=== PATIENT | female | born 1970 | race Caucasian/White ===

== ENCOUNTER 2025-05-12 01:50 | Emergency (ER) | payer OTHER, SELFPAY ==
[2025-05-12 02:04] VITALS: BP 172/97; PULSE 98; RESP 20; TEMP 36.7; O2SAT 100; BMI 37.8
--- NOTE | 2025-05-12 02:17 | ED.FEMALEGU ---
HPI - Female Genitourinary General Chief complaint: Urogenital-Female Stated complaint: Poss Kidney stone, N/V, weakness Time Seen by Provider: 05/12/25 02:15 Source: patient Mode of arrival: Ambulatory History of Present Illness HPI Narrative: 55-year-old female patient with a history of nephrolithiasis and obesity who complains of left-sided flank and abdominal pain worsening over 2 hours similar to previous kidney stones. No vomiting, diarrhea or fever. Related Data Previous Rx's ?Medication ?Instructions ?Recorded hydrocodone 7.5 mg-acetaminophen 1 tab PO Q6H PRN pain #7 tabs 05/12/25 325 mg tablet tamsulosin 0.4 mg capsule (Flomax) 0.4 mg PO DAILY 4 days #4 caps 05/12/25 Allergies Allergy/AdvReac Type Severity Reaction Status Date / Time Penicillins Allergy Rash Verified 05/12/25 02:05 Sulfa (Sulfonamide Allergy Rash Verified 05/12/25 02:05 Antibiotics) Review of Systems Review of Systems ROS Unobtainable: All systems reviewed & are unremarkable except as noted in HPI and below Gastrointestinal Gastrointestinal: Reports as per HPI Genitourinary Genitourinary: Reports as per HPI Exam Narrative Exam Narrative: General: Alert and conversant. Moderate distress. Obese. Appears well nourished and well hydrated Craniofacial: No evidence of trauma. Nontender and no swelling. Eyes: PERRLA EOMI conjunctiva clear Lungs: Clear to auscultation with good air movement. No wheezing, rales or rhonchi. No respiratory distress Cardiac: Regular rate and rhythm with no appreciable murmur or gallop Abdomen: Soft, mild left lower quadrant tenderness. No rebound or guarding. With no distention or masses. Normal bowel sounds. Musculoskeletal: Exam of the extremities, axial spine and ribcage reveals no deformity, bony tenderness or swelling. Range of motion intact Neuro: Alert and oriented. Cranial nerves, motor, sensory and cerebellar all grossly intact. No focal deficit Skin: Warm and normal color. No rashes Psychological: Normal affect and interaction. No evidence of delusion or psychosis. Normal mood. Initial Vital Signs Initial Vital Signs: Vital Signs Temperature 98.0 F 05/12/25 02:04 Pulse Rate 98 H 05/12/25 02:04 Respiratory Rate 20 05/12/25 02:04 Blood Pressure 172/97 H 05/12/25 02:04 Pulse Oximetry 100 05/12/25 02:04 Oxygen Delivery Method Room Air 05/12/25 02:04 Course Orders Ordered: ED Orders 05/12/25 01:58 Urinalysis and Microscopic Stat Urine Culture Stat 05/12/25 02:15 CBC Auto Diff [Complete Blood Count AUTO DIFF] Stat CMP [Comprehensive Metabolic Panel] Stat 05/12/25 03:03 CT abdomen pelvis wo con Stat Discontinued Medications Hydrocodone Bitart/Acetaminophen (Hydrocodone/Acet 5/325 Prepack) 1 bottle MISC DIRECTED ONE Stop: 05/12/25 04:13 Last Admin: 05/12/25 04:22 Dose: 1 bottle Documented By: HINA Hydromorphone HCl (Hydromorphone 1 Mg/Ml Syringe) 1 mg IV NOW ONE Stop: 05/12/25 02:19 Last Admin: 05/12/25 02:31 Dose: 1 mg Documented By: HINA Sodium Chloride (Normal Saline 0.9%) 1,000 mls @ 1,000 mls/hr IV BOLUS ONE Stop: 05/12/25 03:17 Last Infusion: 05/12/25 03:32 Dose: Infused Documented By: Admin: 05/12/25 02:30 Dose: 1,000 mls/hr Documented By: HINA Ketorolac Tromethamine (Ketorolac 30 Mg/Ml Vial) 30 mg IV NOW ONE Stop: 05/12/25 02:19 Last Admin: 05/12/25 02:31 Dose: 30 mg Documented By: HINA Ondansetron HCl (Ondansetron 4 Mg/2 Ml Inj) 4 mg IV NOW ONE Stop: 05/12/25 02:27 Last Admin: 05/12/25 02:31 Dose: 4 mg Documented By: HINA Tamsulosin HCl (Tamsulosin 0.4 Mg Capsule) 0.4 mg PO NOW ONE Stop: 05/12/25 02:19 Last Admin: 05/12/25 02:32 Dose: 0.4 mg Documented By: HINA Vital Signs Vital signs: Vital Signs - 8 hr 05/12/25 02:04 05/12/25 03:32 05/12/25 04:35 Temperature 98.0 F Pulse Rate 98 H 81 80 Respiratory Rate 20 15 15 Blood Pressure 172/97 H 147/66 H 114/65 Pulse Oximetry 100 93 96 Oxygen Delivery Method Room Air Room Air Room Air MDM - Female Genitourinary Lab Data 05/12/25 02:15 05/12/25 02:15 Labs: Lab Results 05/12/25 05/12/25 Range/Units 01:58 02:15 WBC 10.1 (4.5-11.0) X10^3/uL RBC 5.24 H (4.0-5.2) X10^6/uL Hgb 16.1 H (12.0-16.0) g/dL Hct 47.3 H (36-46) % MCV 90.2 (80-100) fL MCH 30.8 (26-34) PG MCHC 34.1 (30-36) % RDW 13.5 (11.6-14.8) % Plt Count 261 (150-400) X10^3/uL Neut % (Auto) 79.6 H (50-75) % Lymph % (Auto) 12.9 L (25-40) % [place] % (Auto) 3.2 (3-14) % Eos % (Auto) 1.0 L (2-4) % Baso % (Auto) 3.3 H (0-2) % Neut # (Auto) 8100 H (0007-6028) /uL Lymph # (Auto) 1300 (1673-8601) /uL [place] # (Auto) 300 (0-900) /uL Eos # (Auto) 100 (0-450) /uL Baso # (Auto) 300 H (0-100) /uL Sodium 139 (137-145) mmol/L Potassium 3.4 (3.4-5.1) mmol/L Chloride 106 (98-107) mmol/L Carbon Dioxide 20 L (22-32) mmol/L BUN 16 (7-17) mg/dL Creatinine 0.85 (0.52-1.04) mg/dL Estimated GFR > 60 (>60) mL/min BUN/Creatinine Ratio 18.8 (6-22) Glucose 191 H (70-99) mg/dL Calcium 9.5 (8.4-10.2) mg/dL Total Bilirubin 0.6 (0.2-1.3) mg/dL AST 30 (14-36) IU/L ALT 33 (<35) IU/L Alkaline Phosphatase 102 (38-126) U/L Total Protein 8.3 H (6.3-8.2) g/dL Albumin 4.5 (3.5-5.0) g/dL Globulin 3.8 (1.7-4.1) g/dL Albumin/Globulin Ratio 1.2 (1.0-2.8) Urine Color Yellow Urine Appearance Sl cloudy Urine pH 6.0 (4.5-8.0) Ur Specific [place] 1.025 (1.000-1.035) Urine Protein 1+ H (Negative) Urine Glucose (UA) Negative (Negative) g/dL Urine Ketones 2+ H (NEGATIVE) Urine Occult Blood 3+ H (Negative) Urine Nitrate Negative (Negative) Urine Bilirubin Negative (NEGATIVE) Urine Urobilinogen 1.0 (0.2) E.U./dL Ur Leukocyte Esterase Trace H (NEGATIVE) Urine RBC 30-100/hpf H (0-5/HPF) Urine WBC 1-5/hpf (0-5/HPF) Ur Squamous Epith Cells 1-5 /hpf (0-5/HPF) Calcium Oxalate Crystal Moderate H Amorphous Sediment 1+ Urine Bacteria Few (2-10) H (None) Urine Yeast 0-1/hpf (None) Ur Culture Indicated? Specimen cultured Vol Urine Centrifuged 10ml (spun) Imaging Data CT scan - abdomen/pelvis: Radiologist's Impression: Impression: Moderate left hydroureteronephrosis and perinephric/periureteral inflammatory changes with a obscuring 7 mm distal ureteral calculus. [facility] Narrative Medical decision making narrative: Patient had a 7 mm distal ureteral stone in the left with moderate left hydronephrosis. She feels better with Flomax, ketorolac and hydromorphone. She will follow up with Urology. She is discharged home with instructions to take Flomax, ibuprofen and hydrocodone and continue to hydrate and pass the stone. She will follow up with Urology. Return to the ER if worse Discharge Plan Departure Patient Disposition: Home Clinical Impression: Right distal ureteral calculus, Renal colic on right side Instructions: DI for Kidney Stones Activity Restrictions/Additional Instructions: Plan: Hydration, ibuprofen, hydrocodone and Flomax and try to pass the stone at home. Follow up with Urology if not improving. Return to the ER if worse Prescriptions: New tamsulosin [Flomax] 0.4 mg capsule 0.4 mg PO DAILY 4 Days Qty: 4 0RF hydrocodone-acetaminophen 7.5-325 mg tablet 1 tab PO Q6H PRN (Reason: pain) Qty: 7 0RF Referrals: Misael Ham DO [Physician, Urology] - 3-5 days Referral Note: Follow up with Urology if not improving Stand Alone Forms: Patient Portal/API
[2025-05-12 02:21] LABS: Bilirubin Urine UA NEGATIVE (NEGATIVE); Color Urine UA YELLOW; Glucose Urine UA NEGATIVE (Negative); Ketones Urine UA 2+ (NEGATIVE); Leukocyte Esterase Urine UA TRACE (NEGATIVE); Nitrite Urine UA NEGATIVE (Negative); Occult Blood Urine UA 3+ (Negative); Protein Urine UA 1+ (Negative); Specific Gravity Urine UA 1.025 (1.000-1.035); Urobilinogen Urine UA 1.0 E.U./dL (0.2)
[2025-05-12 02:22] LABS: Appearance Urine UA SL CLOUDY; pH Urine UA 6.0 (4.5-8.0)
[2025-05-12 02:29] LABS: Add Manual Diff / Slide Review NO; Hematocrit 47.3 % (36-46); Hemoglobin 16.1 g/dL (12.0-16.0); Lymphocytes Absolute Auto 1300 /uL (1100-4500); Mean Corpuscular HGB Conc 34.1 % (30-36); Mean Corpuscular Hemoglobin 30.8 PG (26-34); Mean Corpuscular Volume 90.2 fL (80-100); Platelet Count 261 X10^3/uL (150-400)
[2025-05-12 02:29] LABS: Culture Indicated Urine Specimen Cultured
[2025-05-12] MEDS: SODIUM CHLORIDE 0.9% 1,000 ML 1000 ML IV (02:30)
[2025-05-12] MEDS: ONDANSETRON 4 MG/2 ML INJ IV (02:31)
[2025-05-12] MEDS: KETOROLAC 30 MG/ML VIAL IV (02:31)
[2025-05-12] MEDS: TAMSULOSIN 0.4 MG CAPSULE PO (02:32)
[2025-05-12 02:44] LABS: Alanine Aminotransferase 33 IU/L (<35); Albumin 4.5 g/dL (3.5-5.0); Albumin Globulin Ratio 1.2 (1.0-2.8); Alkaline Phosphatase 102 U/L (38-126); Blood Urea Nitrogen 16 mg/dL (7-17); Calcium 9.5 mg/dL (8.4-10.2); Carbon Dioxide 20 mmol/L (22-32); Chloride 106 mmol/L (98-107); Estimated Glomerular Filt Rate > 60 mL/min (>60); Globulin 3.8 g/dL (1.7-4.1); Glucose 191 mg/dL (70-99); HEMOLYSIS < 15 (0-50); Potassium 3.4 mmol/L (3.4-5.1); Sodium 139 mmol/L (137-145); Total Protein 8.3 g/dL (6.3-8.2)
--- NOTE | 2025-05-12 03:03 | DI.CT.S_ITS ---
PROCEDURE: CT ABDOMEN PELVIS WO CON INDICATIONS: Left renal colic with hematuria TECHNIQUE: CT of the abdomen and pelvis was obtained without intravenous contrast. Coronal and sagittal reformats were performed. For radiation dose reduction, the following was used: automated exposure control, adjustment of mA and/or kV according to patient size. COMPARISON: None. FINDINGS: Image quality: Diagnostic. Lower Chest: No significant findings. Small incidental hiatal hernia. ABDOMEN: Liver: No contour-deforming mass. Gallbladder: Status post cholecystectomy. Normal caliber CBD. Biliary ducts: No biliary dilation. Pancreas: No ductal dilation. Spleen: Size is within normal limits. Adrenal Glands: No adrenal nodules. Kidneys and Ureters: Moderate to marked left hydronephrosis and hydroureter and prominent left perinephric fat stranding secondary to an obstructing 7 x 4 mm distal left ureteral stone. Possible small or left ureteral stone is just distal to the obstructing stone. Remaining portions of the left ureter are otherwise unremarkable. Cluster of nonobstructing right-sided renal stones measure up to 9 mm. No concerning contour deforming renal mass. No obstructing right-sided ureteral stone. Stomach and Bowel: Normal colonic caliber, without significant wall thickening. Colon diverticulosis is noted without inflammatory changes concerning for acute diverticulitis. Normal appendix. Stomach and duodenum are unremarkable. Peritoneum: No abnormal intraperitoneal fluid. No free air. Multiple calcified foci are noted in the mesentery. Ventral Wall: Small ventral fat containing hernia. Abdominal Nodes: No retroperitoneal or mesenteric adenopathy by size criteria. Vessels: Aorta and inferior vena cava are normal in size. Mild to moderate atheromatous plaques are noted in the nonaneurysmal abdominal aorta. PELVIS: Pelvic Organs: Status post hysterectomy. Bladder: Unremarkable. Pelvic Nodes: No enlarged lymph nodes. Miscellaneous: No inguinal hernias are seen. Bones: No aggressive osseous abnormality. Multilevel degenerative disc disease noted in the lumbar spine. IMPRESSION: Moderate to marked left hydronephrosis and hydroureter due to an obstructing distal left ureteral 7 x 4 mm stone. Additional nonobstructing right-sided renal stone. Dictated by: Jennifer Mari M.D. on 05/12/2025 at 8:12 Approved by: Jennifer Mari M.D. on 05/12/2025 at 8:25
[2025-05-12 03:32] VITALS: BP 147/66; PULSE 81; RESP 15; O2SAT 93
[2025-05-12 04:35] VITALS: BP 114/65; PULSE 80; RESP 15; O2SAT 96
== END 2025-05-12 04:36 | disposition home or self-care (01) ==
PROVIDERS: Emergency Provider Emergency Medicine
DX: N20.2 Calculus of kidney with calculus of ureter (principal); Z87.442 Personal history of urinary calculi; E66.9 Obesity, unspecified; Z68.37 Body mass index [BMI] 37.0-37.9, adult
CPT/HCPCS: 36415; 74176; 80053; 81001; 85025; 87086; 96361; 96374; 96375; 99284; J1171; J1885; J2405; J7030